=== PATIENT | female | born 1945 | race Caucasian/White ===

== ENCOUNTER 2018-05-12 10:56 | Inpatient (IN) | payer MEDICARE, MEDICAID ==
[~2018-05-12] VITALS: Ht 167.6 cm; Wt 150.0 kg
[~2018-05-12 10:56] MED LIST: ASCO-139; CARV3.12 PO; CHOL100046 PO; HYDR-569 PO; HYDR25TA4 PO; IBUP-1985 PO; NITR0.4T SL; OMEG500C3 PO; ROSU20TA PO; TIMO5SOL10 OP
[2018-05-12 11:52] LABS: BASOPHILS % (AUTO) 0.3 % (0-1); EOSINOPHILS # (AUTO) 0.2 X10'3 (0-0.9); EOSINOPHILS % (AUTO) 2.4 % (0-6); HEMATOCRIT 44.8 % (35.0-45.0); HEMOGLOBIN 15.2 g/dl (12.0-16.0); LYMPHOCYTES # (AUTO) 1.9 X10'3 (1.1-4.8); LYMPHOCYTES % (AUTO) 26.5 % (21-51); MEAN CORPUSCULAR HEMOGLOBIN 31.8 PG (27.0-31.0); MEAN CORPUSCULAR VOLUME 93.6 FL (78-98); MEAN PLATELET VOLUME 8.4 FL (7.4-10.4); MONOCYTES # (AUTO) 0.4 X10'3 (0-0.9); MONOCYTES % (AUTO) 5.8 % (2-12); NEUTROPHILS # (AUTO) 4.7 X10'3 (1.8-7.7); PLATELET COUNT 211 X10'3 (140-440); RED BLOOD COUNT 4.79 X10'6 (4.20-5.60); RED CELL DISTRIBUTION WIDTH 13.9 % (11.5-14.5); WHITE BLOOD COUNT 7.2 X10'3 (4.5-11.0)
[2018-05-12 11:56] LABS: PARTIAL THROMBOPLASTIN TIME 22 SECONDS (22-32); PROTHROMBIN TIME 10.3 SECONDS (9.0-12.0)
[2018-05-12 11:59] LABS: ALANINE AMINOTRANSFERASE 59 U/L (12-78); ALBUMIN 3.7 G/DL (3.4-5.0); ALKALINE PHOSPHATASE 56 IU/L (46-116); ANION GAP 8 (8-16); ASPARTATE AMINO TRANSFERASE 32 U/L (10-37); BLOOD UREA NITROGEN 14 MG/DL (7-18); BUN/CREATININE RATIO 17.5 (6.6-38.0); CALCIUM 9.6 MG/DL (8.5-10.1); CHLORIDE 105 MMOL/L (99-107); GLUCOSE 136 MG/DL (70-104); SODIUM 141 MMOL/L (135-145); TOTAL CARBON DIOXIDE 27.9 MMOL/L (24-32); TOTAL PROTEIN 7.4 G/DL (6.4-8.2); eGFR 71 ML/MIN
[2018-05-12] MEDS ORDERED: normal saline 1000ml 1,000 ML IV ONE (12:55)
[2018-05-12] MEDS ORDERED: meclizine 12.5mg tablet PO ONE (12:55)
[2018-05-12] MEDS ORDERED: EXEN2PEN (14:02)
[2018-05-12] MEDS ORDERED: METF500T7 (14:02)
[2018-05-12] MEDS ORDERED: AZO1OS (14:02)
[2018-05-12] MEDS ORDERED: LIDO700A47 (14:02)
[2018-05-12] MEDS ORDERED: LISI10TA4 (14:02)
[2018-05-12] MEDS ORDERED: SITA100T11 (14:02)
[2018-05-12] MEDS ORDERED: CAPS60CR6 (14:02)
[2018-05-12] MEDS ORDERED: ASPI81TA46 (14:02)
[2018-05-12] MEDS ORDERED: magnesium 4gm in 100ml NS 100 ML IV PRN (14:25)
[2018-05-12] MEDS ORDERED: magnesium 1gm/100ml D5W IVPB 50 ML IV PRN (14:25)
[2018-05-12] MEDS ORDERED: acetaminophen 325mg tablet PO PRN ×2 (14:25)
[2018-05-12] MEDS ORDERED: potassium Cl 40MEQ/NS 500ml 500 ML IV PRN ×2 (14:25)
[2018-05-12] MEDS ORDERED: mag hydrox/Alum hydrox/simeth 30ml oral suspension PO PRN (14:25)
[2018-05-12] MEDS ORDERED: potassium Cl 20 mEq SR tablet PO PRN ×2 (14:25)
[2018-05-12] MEDS ORDERED: magnesium hydroxide 30ml (MOM) UD suspension PO PRN (14:25)
[2018-05-12] MEDS ORDERED: ondansetron/PF 4mg/2ml inj IV PRN (14:25)
[2018-05-12] MEDS ORDERED: magnesium Cl slow-release 64mg tablet PO PRN (14:25)
[2018-05-12] MEDS ORDERED: ondansetron/PF 4mg/2ml inj IV ONE (14:25)
[2018-05-12] MEDS: aspirin 325mg tablet PO SCH (14:44)
[2018-05-12] MEDS: normal saline 1000ml 1,000 ML IV SCH ×2 (14:44→16:54)
[2018-05-12] MEDS ORDERED: iohexol 350MG/ML 100ml bottle IV ONE (14:58)
[2018-05-12] MEDS ORDERED: MESSAGE TO NURSING PO NR (15:30)
[2018-05-12 16:30] VITALS: BP_SYST 129; BP_SYST 138; BP_SYST 141; BP_DIAS 61; BP_DIAS 63; BP_DIAS 65
[2018-05-12 18:00] VITALS: BP 124/47
[2018-05-12 20:00] VITALS: BP_SYST 124; BP_SYST 137; BP_DIAS 50; BP_DIAS 64; BP_DIAS 66
[2018-05-12] MEDS: carVEDilol 3.125mg tablet PO SCH (20:18)
[2018-05-12] MEDS ORDERED: temazepam 15mg capsule PO PRN (21:00)
[2018-05-12 22:00] VITALS: BP 97/34
[2018-05-13 04:00] VITALS: BP 95/35
[2018-05-13 06:00] VITALS: BP 114/53
[2018-05-13 06:08] LABS: ALBUMIN 3.1 G/DL (3.4-5.0); ANION GAP 6 (8-16); BLOOD UREA NITROGEN 13 MG/DL (7-18); BUN/CREATININE RATIO 16.3 (6.6-38.0); CALCIUM 9.5 MG/DL (8.5-10.1); CHLORIDE 105 MMOL/L (99-107); CHOL/HDL RATIO 3.8 (0.00-4.99); CHOLESTEROL 139 MG/DL (0-200); GLUCOSE 120 MG/DL (70-104); HDL CHOLESTEROL 37 MG/DL (35-60); LDL CHOLESTEROL 79 MG/DL (50-100); MAGNESIUM 1.8 MG/DL (1.5-2.4); POTASSIUM 3.9 MMOL/L (3.5-5.1); SODIUM 141 MMOL/L (135-145); TOTAL CARBON DIOXIDE 30.2 MMOL/L (24-32); TRIGLYCERIDES 191 MG/DL (20-135); eGFR 71 ML/MIN
[2018-05-13] MEDS: carVEDilol 3.125mg tablet PO SCH (07:48)
[2018-05-13] MEDS: aspirin 325mg tablet PO SCH (07:48)
[2018-05-13 08:00] VITALS: BP_SYST 130; BP_SYST 132; BP_SYST 136; BP_DIAS 66; BP_DIAS 67; BP_DIAS 68
[2018-05-13] MEDS ORDERED: timolol XE 0.5% ophth GEL forming sol 5ml EACHEYE SCH (08:00)
[2018-05-13] MEDS ORDERED: atorvastatin 10mg tablet PO SCH (08:00)
[2018-05-13] MEDS ORDERED: K and/or MAG REPLACEMENT MC SCH (08:00)
[2018-05-13 08:11] LABS: HEMATOCRIT 40.5 % (35.0-45.0); HEMOGLOBIN 13.7 g/dl (12.0-16.0); MEAN CORPUSCULAR VOLUME 94.1 FL (78-98); RED BLOOD COUNT 4.31 X10'6 (4.20-5.60); WHITE BLOOD COUNT 5.8 X10'3 (4.5-11.0)
[2018-05-13 08:12] LABS: MEAN CORPUSCULAR HEMOGLOBIN 31.7 PG (27.0-31.0); MEAN CORPUSCULAR HGB CONC 33.7 % (33.0-36.5); MEAN PLATELET VOLUME 8.4 FL (7.4-10.4); PLATELET COUNT 200 X10'3 (140-440); RED CELL DISTRIBUTION WIDTH 13.7 % (11.5-14.5)
[2018-05-13 10:00] VITALS: BP 122/56
[2018-05-13] MEDS ORDERED: ASPI-1 PO (11:14)
== END 2018-05-13 13:31 | disposition home or self-care (01) | DRG 103 ==
LOC: ER 10:56 → ED HOLD 14:23 → EDBEDREQ 14:47 → ORTHO 4S 16:00
PROVIDERS: ADMIT Family Medicine; ATTEND Family Medicine
PROC: 5A09357 Assistance with Respiratory Ventilation, Less than 24 Consecutive Hours, Continuous Positive Airway Pressure (ICD-10-PCS; principal; 2018-05-12)
PROC: B3251ZZ Computerized Tomography (CT Scan) of Bilateral Common Carotid Arteries using Low Osmolar Contrast (ICD-10-PCS; 2018-05-12)
PROC: B3281ZZ Computerized Tomography (CT Scan) of Bilateral Internal Carotid Arteries using Low Osmolar Contrast (ICD-10-PCS; 2018-05-12)
DX: G43.909 Migraine, unspecified, not intractable, without status migrainosus (principal); Z68.43 Body mass index [BMI] 50.0-59.9, adult; E66.9 Obesity, unspecified; E78.00 Pure hypercholesterolemia, unspecified; Z96.651 Presence of right artificial knee joint; E78.5 Hyperlipidemia, unspecified; H40.9 Unspecified glaucoma; E11.9 Type 2 diabetes mellitus without complications; M54.9 Dorsalgia, unspecified; G89.29 Other chronic pain; H53.2 Diplopia; I10 Essential (primary) hypertension; Z95.0 Presence of cardiac pacemaker; Z98.51 Tubal ligation status; Z90.49 Acquired absence of other specified parts of digestive tract; Z88.5 Allergy status to narcotic agent; Z88.8 Allergy status to other drugs, medicaments and biological substances; Z79.82 Long term (current) use of aspirin; Z79.899 Other long term (current) drug therapy; Z87.891 Personal history of nicotine dependence; Z82.3 Family history of stroke
CPT/HCPCS: 36415; 70450; 70496; 70498; 71045; 80048; 80053; 80061; 82948; 83735; 84443; 84484; 85025; 85027; 85610; 85730; 87070; 92616; 93005; 93306; 97116; 97161; 99285; J2405; J7030; J8597; Q9967

== ENCOUNTER 2018-07-29 17:58 | Emergency (ER) | payer MEDICARE, MEDICAID ==
[~2018-07-29] VITALS: Ht 167.6 cm; Wt 148.8 kg
[~2018-07-29 17:58] MED LIST changes: +ASPI-1 PO; +AZO1OS; +CAPS60CR6; +EXEN2PEN; -HYDR-569 PO; -IBUP-1985 PO; +LIDO700A47; +LISI10TA4; +METF500T7; -NITR0.4T SL; +SITA100T11
[2018-07-29] MEDS ORDERED: HYDR30CR79 TOP (20:25)
[2018-07-29] MEDS ORDERED: MAGCITRATE CORPAK (20:25)
[2018-07-29 20:41] VITALS: BP 140/95
== END 2018-07-29 20:44 | disposition home or self-care (01) ==
LOC: ER 17:59
DX: K59.00 Constipation, unspecified (principal); E66.9 Obesity, unspecified; E78.00 Pure hypercholesterolemia, unspecified; I10 Essential (primary) hypertension; E11.9 Type 2 diabetes mellitus without complications; G89.29 Other chronic pain; Z90.49 Acquired absence of other specified parts of digestive tract; Z98.890 Other specified postprocedural states; Z98.51 Tubal ligation status; Z88.8 Allergy status to other drugs, medicaments and biological substances; Z79.82 Long term (current) use of aspirin; Z79.899 Other long term (current) drug therapy; Z88.5 Allergy status to narcotic agent
CPT/HCPCS: 99282

== ENCOUNTER 2019-10-02 14:55 | Emergency (ER) | payer MEDICARE, MEDICAID ==
[~2019-10-02] VITALS: Ht 167.6 cm; Wt 132.3 kg
[~2019-10-02 14:55] MED LIST changes: +HYDR30CR79 TOP; +MAGN296S68 CORPAK; +METF500T20; -METF500T7; -ROSU20TA PO; +ROSU20TA2 PO
[2019-10-02 16:19] VITALS: BP 126/62
[2019-10-02] MEDS ORDERED: HYDROcodone/acetaminophen 10/325mg tab PO ONE (16:30)
[2019-10-02] MEDS ORDERED: ondansetron 4mg rapidly disintigrating tab PO ONE (16:30)
== END 2019-10-02 17:12 | disposition home or self-care (01) ==
LOC: ER 14:55
DX: M54.42 Lumbago with sciatica, left side (principal); G89.29 Other chronic pain; M16.12 Unilateral primary osteoarthritis, left hip; E66.01 Morbid (severe) obesity due to excess calories; E78.00 Pure hypercholesterolemia, unspecified; I10 Essential (primary) hypertension; E11.9 Type 2 diabetes mellitus without complications; Z90.49 Acquired absence of other specified parts of digestive tract; Z98.890 Other specified postprocedural states; Z98.51 Tubal ligation status; Z88.5 Allergy status to narcotic agent; Z88.8 Allergy status to other drugs, medicaments and biological substances; Z79.82 Long term (current) use of aspirin; Z79.899 Other long term (current) drug therapy; W18.39XA Other fall on same level, initial encounter; Y93.89 Activity, other specified; Y92.89 Other specified places as the place of occurrence of the external cause; Y99.8 Other external cause status
CPT/HCPCS: 72131; 72192; 99284

== ENCOUNTER 2025-08-13 11:05 | Emergency (ER) | payer MEDICARE, MEDICAID ==
[~2025-08-13] VITALS: Ht 167.6 cm; Wt 132.7 kg
[~2025-08-13 11:05] MED LIST changes: +ALBU8.5H17 INH; -AZO1OS; +BRIN10DR6; +DEXA6TAB PO; +LISI10TA27; -LISI10TA4; -MAGN296S68 CORPAK; +METF-900; -METF500T20
--- NOTE | 2025-08-13 12:11 | Physician Documentation ---
History of Present Illness ~ Chief Complaint: Mechanical Fall Stated Complaint: FALL/LOWER BACK PAIN Time Seen by MD: 11:30 Primary Medical Doctor: YAMILKA MONTALVO HPI 79-year-old female presents to the ED after having a ground level fall today where she had a missed up falling on her sacral lumbar region. Denies any head strike denies any blood thinners. States her pain is primarily in his sacral area. Patient has a history of spinal fusion Tetanus within 5 Years?: Yes Medication Reconciliation Allergies: Coded Allergies: celecoxib (Verified Allergy, Unknown, 05/04/15) codeine (Verified Allergy, Unknown, 05/04/15) Scheduled Ascorbic Acid (Vitamin C), MG BID, (Reported) Aspirin (Aspirin), 325 MG PO DAILY@0830 Carvedilol (Coreg), 1 TABLET PO BID Cholecalciferol (Vitamin D), 1,000 UNIT PO BID, (Reported) Dexamethasone (Dexamethasone), 1 TAB PO DAILY Hydrochlorothiazide (Hydrochlorothiazide), 1 TAB PO DAILY, (Reported) Hydrocortisone (Anusol-Hc), 1 APPLIC TOP Q12H [place]-3 Fatty Acids (Fish Oil), 1,000 MG PO TID, (Reported) Rosuvastatin Calcium* (Crestor*), 1 TAB PO DAILY, (Reported) Timolol Maleate (Timolol Maleate), 1 DROP OP QAM, (Reported) Scheduled PRN Albuterol Sulfate (Proair Hfa), 2 PUFFS INH Q4HPRN PRN for wheezing Lidocaine (Lidocaine), for pain, (Reported) Miscellaneous Medications Brinzolamide Opth* (Azopt Opth*), (Reported) Capsaicin 60GM Cream* (Zostrix Cream*), (Reported) Exenatide Microspheres (Bydureon Pen), (Reported) Lisinopril (Lisinopril), (Reported) Metformin Hcl* (Metformin ER*), (Reported) Sitagliptin Phosphate (Januvia), (Reported) Past Medical History Past Medical History: Glaucoma, High Cholesterol, Hypertension, Diabetes, Chronic Back Pain Past Surgical History: cholecystectomy, orthopedic surgeries, pacemaker, tubal ligation Patient History: (CVA) Cerebrovascular accident FATHER No Family History of: (CABG) Coronary artery bypass grafting (CAD) Coronary arteriosclerosis (CHF) Congestive heart failure (COPD) Chronic obstructive lung disease (Cancer) Malignant carcinoid tumor (DM Type 2) Diabetes mellitus type 2 (DM Type1) Diabetes mellitus type 1 ([place]) Myocardial infarction (PVD) Peripheral vascular disease (TIA) Transient ischemic attack Alzheimer's disease Aortic aneurysm Asthma Cardiac arrest Hypercholesterolemia Alcohol Use: Occasionally Drug Use: none Lives with: Family Lives In: Home Physical Exam Vital Signs: Temperature: 97.8, Source: Temporal, Heart Rate: 80, Respiratory Rate: 18, BP: 149/64, Pulse Oximetry: 96, Weight: 132.730 Physical Exam General: Alert, no apparent distress. Back: Tender to the lumbosacral area no signs of deformity or bruising Respiratory: Lungs clear, no respiratory distress. Chest: No accessory muscle use. Cardiovascular: Regular rate and rhythm, no murmurs. Gastrointestinal: Soft, nontender, nondistended. Bowels sounds present. Extremities: Normal range of motion, no deformity. Neurologic: Oriented x4. Psychiatric: Normal mood and affect. Skin: Normal color, warm and dry. No edema, no ecchymosis. Progress Results/Orders Results/Orders Orders - SUSY FIELDS [employer] CONSULTANT Lumbar Spine Limited (08/13/25 ) Completed Orders - [employer] FIELDS [employer] CONSULTANT Lumbar Spine Limited (08/13/25 ) Hydrocodone/Apap 10/325 ([place] 10/325mg (08/13/25 12:10) Medications Received in ER Medications (Trade) Dose Ordered Sig/Neha Route PRN Reason Start Time Stop Time Status Last Admin Dose Admin ([place] 10/325mg tab) 1 tab ONCE ONCE PO 08/13/25 12:10 08/13/25 12:11 DC 08/13/25 12:19 1 TAB Vital Signs 08/13/25 08/13/25 08/13/25 08/13/25 11:15 12:19 12:21 12:22 Temp 97.8 Pulse 80 72 Resp 18 16 14 18 B/P (MAP) 149/64 140/67 (91) Pulse Ox 96 96 O2 Flow Rate 0 08/13/25 08/13/25 12:50 13:10 Temp 98.0 Pulse 78 Resp 16 16 B/P (MAP) 117/49 Pulse Ox 98 Medical Decision Making Additional info obtained from: other Findings I did not appreciate any signs of acute fracture and patient's x-ray note of the radiologist. Did treat her for pain while she was here in the ED. Need to follow up in the outpatient setting if her symptoms persist for Differential Dx:Considerations: Include: Closed head injury, Cardiac injury, Fracture(s), Intraabdominal injury, Pneumothorax, Cerebral contusion, Pulmonary contusion, Spine injury, Tracheal injury, Urological injury, Vascular injury, Abrasion(s), Contusion(s), Foreign body(s), Hematoma(s), Laceration(s), Encephalopathy, Other Departure Disposition: 01 HOME / SELF CARE / HOMELESS Impression: Primary Impression: Fall Condition: Stable Discharge Instructions: Fall Prevention in the Home, Adult, [id number] Additional Instructions: No fractures on your x-ray you likely suffered a contusion in your fall. 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 08/13/25 17:41 SUSY FIELDS NP Aug 13, 2025 12:11
[2025-08-13] MEDS: HYDROcodone/acetaminophen 10/325mg tab PO ONE (12:19)
--- NOTE | 2025-08-13 12:22 | RADIOLOGY REPORT ---
INDICATION: Pain fall COMPARISON: None TECHNIQUE: 3 views of the lumbar spine were obtained. FINDINGS/IMPRESSION: Postsurgical spinal hardware is visualized in the thoracolumbar spine. Diffuse osteopenia. Severe multilevel degenerative disc disease of the lumbosacral spine. No acute fracture, vertebral compression deformity or aggressive osseous lesions. The paravertebral soft tissues are grossly unremarkable.
[2025-08-13 13:10] VITALS: BP 117/49; PULSE 78; RESP 16; TEMP 98; O2SAT 98
== END 2025-08-13 13:11 | disposition home or self-care (01) ==
LOC: ER 11:07
DX: M53.3 Sacrococcygeal disorders, not elsewhere classified (principal); E11.9 Type 2 diabetes mellitus without complications; E78.00 Pure hypercholesterolemia, unspecified; G89.29 Other chronic pain; I10 Essential (primary) hypertension; Z88.5 Allergy status to narcotic agent; Z98.51 Tubal ligation status; Z95.0 Presence of cardiac pacemaker; Z90.49 Acquired absence of other specified parts of digestive tract; Z88.8 Allergy status to other drugs, medicaments and biological substances; Z79.82 Long term (current) use of aspirin; Z79.899 Other long term (current) drug therapy; Z72.89 Other problems related to lifestyle; W18.39XA Other fall on same level, initial encounter; Y93.89 Activity, other specified; Y92.89 Other specified places as the place of occurrence of the external cause; Y99.8 Other external cause status
CPT/HCPCS: 72100; 99284